=== PATIENT | male | born 1990 | race American Indian/Alaskan Native ===

== ENCOUNTER 2016-11-02 03:15 | Emergency (ER) | payer SELFPAY ==
[2016-11-02 03:37] VITALS: BP 130/71
--- NOTE | 2016-11-02 05:12 | Emergency Department Report ---
ED Male HPI - General Chief complaint: Urogenital-Male Stated complaint: GENITAL PAIN Time Seen by Provider: 11/02/16 05:11 Source: patient Mode of arrival: Ambulatory Limitations: No Limitations - History of Present Illness Initial comments: 26-year-old male with past medical history none presents with complaint of yellowish penile discharge and mild dysuria. Patient has had 2+ sex partners unprotected in the last 3-6 months. Denies testicular pain denies any external rash. Denies fever chills nausea vomiting. States that discharged beginning stain his underwear. MD Complaint: dysuria Onset/Timin -: days(s) Location: penis Worsens with: urination discharge (yellowish discharge from urethra) - Related Data Allergies Allergy/AdvReac Type Severity Reaction Status Date / Time No Known Allergies Allergy Unverified 11/02/16 03:37 ED Review of Systems ROS: Stated complaint: GENITAL PAIN Other details as noted in HPI Constitutional: denies: chills, fever Eyes: denies: eye pain, eye discharge, vision change ENT: denies: ear pain, throat pain Respiratory: denies: cough, shortness of breath, wheezing Cardiovascular: denies: chest pain, palpitations Endocrine: no symptoms reported Gastrointestinal: denies: abdominal pain, nausea, diarrhea Genitourinary: dysuria, discharge (penile discharge). denies: urgency Musculoskeletal: denies: back pain, joint swelling, arthralgia Skin: denies: rash, lesions Neurological: denies: headache, weakness, paresthesias Psychiatric: denies: anxiety, depression Hematological/Lymphatic: denies: easy bleeding, easy bruising ED Past Medical Hx - Past Medical History Previous Medical History?: No - Surgical History Past Surgical History?: No - Social History Smoking Status: Never Smoker Substance Use Type: None ED Physical Exam - General Limitations: No Limitations General appearance: alert, in no apparent distress - Head Head exam: Present: atraumatic, normocephalic - Eye Eye exam: Present: normal appearance, PERRL, EOMI - ENT ENT exam: Present: mucous membranes moist - Neck Neck exam: Present: normal inspection - Respiratory Respiratory exam: Present: normal lung sounds bilaterally. Absent: respiratory distress - Cardiovascular Cardiovascular Exam: Present: regular rate, normal rhythm. Absent: systolic murmur, diastolic murmur, rubs, gallop - GI/Abdominal GI/Abdominal exam: Present: soft, normal bowel sounds - Rectal Rectal exam: Present: deferred - exam: Present: urethral discharge (yellowish whitish penile discharge) - Extremities Exam Extremities exam: Present: normal inspection - Back Exam Back exam: Present: normal inspection - Neurological Exam Neurological exam: Present: alert, oriented X3 - Psychiatric Psychiatric exam: Present: normal affect, normal mood - Skin Skin exam: Present: warm, dry, intact, normal color. Absent: rash ED Course Vital Signs 11/02/16 03:35 Temperature 98.6 F Pulse Rate 77 Respiratory 17 Rate Blood Pressure 130/71 O2 Sat by Pulse 99 Oximetry ED Medical Decision Making - Medical Decision Making A/P: Urethritis 1-patient empirically treated with azithromycin and ceftriaxone 2-GC cultures sent 3-patient given follow-up with primary care Critical care attestation.: If time is entered above; I have spent that time in minutes in the direct care of this critically ill patient, excluding procedure time. ED Disposition Clinical Impression: Urethritis, Penile discharge Disposition: DC- TO HOME OR SELFCARE Is pt being admited?: No Does the pt Need Aspirin: No Condition: Stable Instructions: Nonspecific Urethritis in Men (ED), Chlamydia Infection (ED), Gonococcal Urethritis (ED) Referrals: [facility] [Outside] - 3-5 Days [facility] [Outside] - 3-5 Days Forms: STI Treatment and Prevention Time of Disposition: 05:41
[2016-11-02] MEDS ORDERED: ROCEPHIN IM ONE (05:32)
[2016-11-02] MEDS ORDERED: XYLOCAINE 1% MPF 5 mL INFILTRATI ONE (05:32)
[2016-11-02] MEDS ORDERED: ZITHROMAX PO ONE (05:33)
[2016-11-02 06:20] LABS: Bacteria,Urine 2+ /HPF (Negative); Bilirubin,Urine NEG (Negative); Blood,Urine NEG (Negative); Ketones,Urine NEG (Negative); Leukocyte Esterase,Urine LG (Negative); Mucus,Urine 2+ /HPF; Nitrite,Urine NEG (Negative)
== END 2016-11-02 06:20 | disposition home or self-care (01) ==
LOC: ED 03:15
DX: N34.2 Other urethritis (principal)
CPT/HCPCS: 81001; 87591; 96372; 99282; J0696

== ENCOUNTER 2017-02-10 16:56 | Emergency (ER) | payer OTHER ==
[2017-02-10 17:41] LABS: Bilirubin,Urine NEG (Negative); Blood,Urine NEG (Negative); Ketones,Urine NEG (Negative); Leukocyte Esterase,Urine MOD (Negative); Mucus,Urine FEW /HPF; Nitrite,Urine NEG (Negative); Protein,Urine <15 mg/dL mg/dL (Negative); Urobilinogen,Urine < 2.0 mg/dL (<2.0)
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
[2017-02-10] MEDS ORDERED: ROCEPHIN IM STA (21:25)
[2017-02-10] MEDS ORDERED: XYLOCAINE 1% MPF 5 mL INFILTRATI ONE (21:25)
[2017-02-10] MEDS ORDERED: ZITHROMAX PO ONE (21:25)
[2017-02-10] MEDS ORDERED: FLAGYL PO ONE (21:26)
[2017-02-11 00:57] VITALS: BP 103/67
== END 2017-02-10 22:40 | disposition home or self-care (01) ==
LOC: ED 16:56
DX: N30.00 Acute cystitis without hematuria (principal); F17.200 Nicotine dependence, unspecified, uncomplicated; F12.10 Cannabis abuse, uncomplicated
CPT/HCPCS: 81001; 87086; 96372; 99283; J0696

== ENCOUNTER 2017-05-12 05:50 | Emergency (ER) | payer SELFPAY ==
[2017-05-12 05:57] VITALS: BP 121/81
[2017-05-12] MEDS ORDERED: FLAGYL PO ONE (08:04)
[2017-05-12] MEDS ORDERED: ROCEPHIN IM ONE (08:04)
[2017-05-12] MEDS ORDERED: XYLOCAINE 1% MPF 5 mL INFILTRATI ONE (08:04)
[2017-05-12] MEDS ORDERED: ZITHROMAX PO ONE (08:04)
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
== END 2017-05-12 08:44 | disposition home or self-care (01) ==
LOC: ED 05:50
DX: R36.9 Urethral discharge, unspecified (principal); J45.909 Unspecified asthma, uncomplicated; Z91.09 Other allergy status, other than to drugs and biological substances
CPT/HCPCS: 96372; 99282; J0696

== ENCOUNTER 2018-08-07 20:05 | Emergency (ER) | payer SELFPAY ==
[2018-08-07 20:10] VITALS: BP 145/77
[2018-08-07] MEDS ORDERED: AUGMENTIN 875 MG PO ONE (20:38)
[2018-08-07] MEDS ORDERED: BOOSTRIX IM ONE (20:38)
--- NOTE | 2018-08-07 20:44 | Emergency Department Report ---
ED Animal Bite HPI - General Chief Complaint: Animal Bite Stated Complaint: DOG BITE TO RIGHT LEG Time Seen by Provider: 08/07/18 20:37 Source: patient Mode of arrival: Ambulatory Limitations: No Limitations - History of Present Illness MD Complaint: animal bite (pit bull) -: Sudden Location: other (right hamstring) Right: Knee Animal: dog Animal Control Notified: Yes Description: household pet (his neighbors dog. shots UTD), immunizations UTD Mechanism: bite Pain Description: dull Context: unprovoked Associated Symptoms: none - Related Data Patient Tetanus UTD: No Previous Rx's Medication Instructions Recorded Last Taken Type Ciprofloxacin HCl [Ciprofloxacin 500 mg PO Q12HR 10 Days #20 tab 02/10/17 Unknown Rx TAB] Amoxicillin/Potassium Clav 1 each PO BID #20 tablet 08/07/18 Unknown Rx [Augmentin 875-125 Tablet] Chlorhexidine Gluconate [Hibiclens] 10 ml TP BID #240 liquid 08/07/18 Unknown Rx Allergies Allergy/AdvReac Type Severity Reaction Status Date / Time pollen extracts Allergy Unknown Verified 05/12/17 05:57 ED Review of Systems ROS: Stated complaint: DOG BITE TO RIGHT LEG Other details as noted in HPI Comment: All other systems reviewed and negative ED Past Medical Hx - Past Medical History Hx Asthma: Yes - Social History Smoking Status: Never Smoker Substance Use Type: None - Medications Home Medications: Home Medications Medication Instructions Recorded Confirmed Last Taken Type Ciprofloxacin HCl [Ciprofloxacin 500 mg PO Q12HR 10 Days #20 tab 02/10/17 Unknown Rx TAB] Amoxicillin/Potassium Clav 1 each PO BID #20 tablet 08/07/18 Unknown Rx [Augmentin 875-125 Tablet] Chlorhexidine Gluconate [Hibiclens] 10 ml TP BID #240 liquid 08/07/18 Unknown Rx ED Physical Exam - General Limitations: No Limitations General appearance: alert, in no apparent distress - Head Head exam: Present: atraumatic, normocephalic - Eye Eye exam: Present: normal appearance - ENT ENT exam: Present: mucous membranes moist - Neck Neck exam: Present: normal inspection - Respiratory Respiratory exam: Present: normal lung sounds bilaterally. Absent: respiratory distress - Cardiovascular Cardiovascular Exam: Present: regular rate, normal rhythm. Absent: systolic murmur, diastolic murmur, rubs, gallop - GI/Abdominal GI/Abdominal exam: Present: soft, normal bowel sounds - Rectal Rectal exam: Present: deferred - Extremities Exam Extremities exam: Present: normal inspection - Expanded Lower Extremity Exam Right Upper Leg exam: Present: tenderness, erythema. Absent: ecchymosis, dislocation Knee exam: Present: normal inspection Lower Leg exam: Present: normal inspection 1 - abrasion like bite to leg. pulse 2+ - Back Exam Back exam: Present: normal inspection - Neurological Exam Neurological exam: Present: alert, oriented X3, CN II-XII intact, normal gait - Psychiatric Psychiatric exam: Present: normal affect, normal mood - Skin Skin exam: Present: warm, dry, normal color, erythema, abrasion. Absent: rash ED Course Vital Signs 08/07/18 20:08 Temperature 98.1 F Pulse Rate 81 Respiratory 18 Rate Blood Pressure 145/77 O2 Sat by Pulse 99 Oximetry Critical care attestation.: If time is entered above; I have spent that time in minutes in the direct care of this critically ill patient, excluding procedure time. ED Disposition Clinical Impression: Dog bite Disposition: DC-01 TO HOME OR SELFCARE Is pt being admited?: No Does the pt Need Aspirin: No Condition: Stable Instructions: Animal Bite (ED) Referrals: [facility] [Provider Group] - 3-5 Days
== END 2018-08-07 21:59 | disposition home or self-care (01) ==
LOC: ED 20:05
DX: S81.051A Open bite, right knee, initial encounter (principal); J45.909 Unspecified asthma, uncomplicated; Z91.030 Bee allergy status; W54.0XXA Bitten by dog, initial encounter; Y93.89 Activity, other specified; Y92.89 Other specified places as the place of occurrence of the external cause; Y99.8 Other external cause status
CPT/HCPCS: 90471; 90715; 99282

== ENCOUNTER 2020-09-29 13:47 | Emergency (ER) | payer OTHER ==
[2020-09-29 14:46] VITALS: BP 113/71
--- NOTE | 2020-09-29 17:38 | Emergency Department Report ---
Abscess Boil HPI - HPI Chief Complaint: Skin/Abscess/Foreign Body Stated Complaint: CYST ON SHAFT OF PRIVATE AREA Time Seen by Provider: 09/29/20 15:47 Duration: 2 Days Location: Other (shaft of penis) History: Yes Pain, Yes Purulent Drainage, No Fever, No Numbness, No Foreign Body, No Previous History, No Insect Bite HPI: 30 year old male present to the ER today with a tender swollen area to the shaft of his penis. Patient states that he started off small about 2 days ago and has since gotten bigger and more painful. He states that there is some mild drainage from it. He denies any insect bites or injuries to his penis. He denies any penile discharge, testicular pain or swelling. He denies similar symptoms in the past. He is sexually active. Home Medications: Previous Rx's Medication Instructions Recorded Last Taken Type Ciprofloxacin HCl [Ciprofloxacin 500 mg PO Q12HR 10 Days #20 tab 02/10/17 Unknown Rx TAB] Amoxicillin/Potassium Clav 1 each PO BID #20 tablet 08/07/18 Unknown Rx [Augmentin 875-125 Tablet] Chlorhexidine Gluconate [Hibiclens] 10 ml TP BID #240 liquid 08/07/18 Unknown Rx Sulfamethoxazole/Trimethoprim 1 each PO BID #14 tablet 09/29/20 Unknown Rx [Bactrim DS TAB] Allergies/Adverse Reactions: Allergies Allergy/AdvReac Type Severity Reaction Status Date / Time pollen extracts Allergy Unknown Verified 09/29/20 14:46 ED Review of Systems ROS: Stated complaint: CYST ON SHAFT OF PRIVATE AREA Other details as noted in HPI Comment: All other systems reviewed and negative Constitutional: denies: chills, fever Respiratory: denies: cough, shortness of breath, wheezing Cardiovascular: denies: chest pain, palpitations Skin: lesions (Shaft of penis) Neurological: denies: headache, weakness, numbness, paresthesias, confusion, abnormal gait, vertigo Psychiatric: denies: anxiety, depression, auditory hallucinations, visual h allucinations, homicidal thoughts, suicidal thoughts ED Past Medical Hx - Past Medical History Hx Asthma: Yes - Social History Smoking Status: Never Smoker Substance Use Type: None - Medications Home Medications: Home Medications Medication Instructions Recorded Confirmed Last Taken Type Ciprofloxacin HCl [Ciprofloxacin 500 mg PO Q12HR 10 Days #20 tab 02/10/17 Unknown Rx TAB] Amoxicillin/Potassium Clav 1 each PO BID #20 tablet 08/07/18 Unknown Rx [Augmentin 875-125 Tablet] Chlorhexidine Gluconate [Hibiclens] 10 ml TP BID #240 liquid 08/07/18 Unknown Rx Sulfamethoxazole/Trimethoprim 1 each PO BID #14 tablet 09/29/20 Unknown Rx [Bactrim DS TAB] ED Abscess Boil Physical Exam - Exam General: Vital signs noted. No distress. Alert and acting appropriately. Size: 1 cm Exam: Yes Tenderness, Yes Fluctuance, Yes Surrounding Cellulites/Erythema (Mild mainly localized to the cystic area), Yes Normal Circulation, No Lymphangitis, No Crepitation, No Heart Murmur Exam: Small, about the size of a hubert, mildly indurated but also cystic appearing area with some mild overlying erythema and moderate tenderness to palpation noted to the shaft of the penis. There is no fluctuance. No drainage at the time of exam. No penile discharge or any other lesions noted on exam. ED Course Vital Signs 09/29/20 14:46 Temperature 98.9 F Pulse Rate 68 Respiratory 17 Rate Blood Pressure 113/71 [Left] O2 Sat by Pulse 100 Oximetry Critical care attestation.: If time is entered above; I have spent that time in minutes in the direct care of this critically ill patient, excluding procedure time. ED Disposition Clinical Impression: Abscess of shaft of penis Disposition: DC-01 TO HOME OR SELFCARE Is pt being admited?: No Does the pt Need Aspirin: No Condition: Stable Instructions: Skin Abscess Additional Instructions: Keep the area clean daily with soap and water. Do not use anymore peroxide or alcohol. Dry well and apply thin layer of Neosporin. Take the Bactrim as prescribed. Follow-up with primary care doctor. Return to the ER symptoms changes or worsens in any way. Prescriptions: Sulfamethoxazole/Trimethoprim [Bactrim DS TAB] 1 each PO BID #14 tablet Referrals: JACKSON STRONG MD [Staff Physician] - 3-5 Days SHEELA WEINBERG MD [Staff Physician] - 7-10 days (Urologist ) Time of Disposition: 17:40
== END 2020-09-29 17:44 | disposition home or self-care (01) ==
LOC: ED 13:47
DX: N48.21 Abscess of corpus cavernosum and penis (principal)
CPT/HCPCS: 99281